=== PATIENT | male | born 1960 | race Caucasian/White ===

== ENCOUNTER → 2020-10-25 11:21 | Outpatient (CLI) | payer OTHER, SELFPAY ==
--- NOTE | ~2020-10-25 | CT_ITS ---
EXAMINATION: CT lumbar spine wo con DATE: 10/25/2020 11:33 INDICATION: Spinal stenosis of lumbar region. Low back pain with radiculopathy. TECHNIQUE: Computed tomography (CT) of the lumbar spine was performed without intravenous contrast. A utomated exposure control and iterative reconstruction technique were employed. The dose-length produ ct was 888.10 mGy-cm. COMPARISON: None FINDINGS: There is 9 degrees levocurvature of lumbar spine. There are Schmorl's nodes at L1-L2. There is mildly decreased disc height at L3-L4. The following disc levels are specifically discussed: L1-L2: The disc is mildly bulging. There is mild bilateral facet joint osteoarthritis. There is mild bilateral neural foraminal stenosis. There is no central canal stenosis. L2-L3: The disc is mildly bulging. There is mild bilateral facet joint osteoarthritis. There is mild bilateral neural foraminal stenosis. There is mild central canal stenosis. L3-L4: The disc is bulging. There is mild bilateral facet joint osteoarthritis. There is moderate linda ateral neural foraminal stenosis. There is mild central canal stenosis. L4-L5: The disc is bulging. There is mild bilateral facet joint osteoarthritis. There is moderate linda ateral neural foraminal stenosis. There is mild central canal stenosis. L5-S1: The disc is bulging. There is moderate right and mild left facet joint osteoarthritis. There i s moderate bilateral neural foraminal stenosis. There is mild central canal stenosis. IMPRESSION: 1. Moderate lumbar spondylosis. Reviewed, dictated and finalized at location A.
== END ==
PROVIDERS: PCP Family Medicine; Visit Provider Family Medicine
DX: M48.062 Spinal stenosis, lumbar region with neurogenic claudication (principal); M47.896 Other spondylosis, lumbar region
CPT/HCPCS: 72131

== ENCOUNTER 2021-04-18 07:47 | Outpatient (CLI) | payer OTHER, SELFPAY ==
--- NOTE | ~2021-04-18 | XR_ITS ---
EXAMINATION: XR knee LT min 4V DATE: 04/18/2021 08:52 INDICATION: Left knee pain TECHNIQUE: Four views of the left knee were obtained. COMPARISON: None. FINDINGS: Alignment is normal. No fracture or osteochondral lesion. There is mild tricompartmental os teoarthritis characterized by tiny marginal osteophytes. No joint effusion/synovitis. Soft tissues a re unremarkable. IMPRESSION: 1. No acute osseous abnormality. Reviewed, dictated and finalized at location A. 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
--- NOTE | ~2021-04-18 | XR_ITS ---
EXAMINATION: [id number] INDICATION: Right-sided chest pain TECHNIQUE: A frontal view of the chest and 4 views of the right ribs were obtained. COMPARISON: None. FINDINGS: There are minimal peripheral airspace opacities of the right lung. There is no pleural effu avery or pneumothorax. Cardiomegaly is noted. A dual-lead cardiac pacemaker of the left chest wall end s with leads in expected locations. Calcified right hilar and mediastinal lymph nodes are consistent with old granulomatous disease. There are minimally displaced acute fractures at the anterolateral as pects of the right seventh through ninth ribs. IMPRESSION: 1. Acute minimally displaced fractures at the anterolateral aspects of the right seventh through nint h ribs. 2. Minimal airspace opacities of the right lung, consistent with atelectasis versus pneumonia. Reviewed, dictated and finalized at location A. 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 Acute minimally displaced fractures at the anterolateral aspects of the righ t seventh through ninth ribs. 2. Minimal airspace opacities of the right lung, consistent with atelectasis ve rsus pneumonia.
== END 2021-04-18 07:48 ==
PROVIDERS: PCP Family Medicine; Visit Provider Family Medicine
DX: R07.81 Pleurodynia (principal); M17.12 Unilateral primary osteoarthritis, left knee; R91.8 Other nonspecific abnormal finding of lung field
CPT/HCPCS: 71101; 73564

== ENCOUNTER → 2022-03-09 09:36 | Outpatient (CLI) | payer OTHER, SELFPAY ==
--- NOTE | ~2022-03-09 | CT_ITS ---
EXAMINATION: CT diagnostic chest wo con DATE: 03/09/2022 09:57 INDICATION: Abnormal CT of the chest, interstitial lung disease and interstitial infiltrates TECHNIQUE: Computed tomography (CT) of the chest was performed without intravenous contrast. The dose -length product (DLP) was 671.79 mGy-cm. Automated exposure control and iterative reconstruction tech nique were employed. COMPARISON: None FINDINGS: There are airspace opacities of the right upper lobe. There is a 3 mm nodule of the right m iddle lobe. There are mild subpleural and groundglass reticular opacities of the lower lobes. No pleu ral effusion or pneumothorax. Calcified pulmonary nodules and calcified right hilar and mediastinal l ymph nodes are consistent with old granulomatous disease. No pathologically enlarged thoracic lymph n odes are identified. The heart size is normal. Calcified coronary artery atherosclerosis is noted. He aled right-sided rib fractures are noted. There is mild thoracic spondylosis. IMPRESSION: 1. Minimal airspace opacities of the right upper lobe, consistent with atelectasis and/or infection/i nflammation. 2. Mild interstitial lung disease in a pattern of nonspecific interstitial pneumonia (NSIP). 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 Minimal airspace opacities of the right upper lobe, consistent with atelecta sis and/or infection/inflammation. 2. Mild interstitial lung disease in a pattern of nonspecific interstitial pneu monia (NSIP).
== END ==
PROVIDERS: PCP Hospitalist
DX: R93.89 Abnormal findings on diagnostic imaging of other specified body structures (principal); J84.9 Interstitial pulmonary disease, unspecified
CPT/HCPCS: 71250